=== PATIENT | male | born 1970 ===

== ENCOUNTER 2017-11-08 15:19 | Emergency (ER) | payer SELFPAY ==
[2017-11-08 15:30] VITALS: O2SAT 96
--- NOTE | 2017-11-08 15:48 | ED PDOC ---
Arrival/HPI <Chuck Michael - Last Filed: 11/09/17 04:23> - General Historian: Patient, EMS - History of Present Illness Time/Duration: 1-3 hours Symptom Onset: Sudden Symptom Course: Unchanged Quality: Unable to Describe Severity Level: 1 Activities at Onset: Rest Context: Street <Mervat Colbert - Last Filed: 11/09/17 12:35> - General Chief Complaint: Alcohol Ingestion Time Seen by Provider: 11/08/17 15:33 - History of Present Illness Narrative History of Present Illness (Text): 11/08/17 15:43 Pt is a 47 yr old male, new to this ER, BIBA for possible alcohol intoxication. Pt was found passed out on street in [place]. Pt states that he drank 6 beer since 8:30 this morning and had alcohol yesterday as well. Denies taking or consuming other substances, chest pain shortness of breath, fever, nausea, vomiting, diarrhea, tremors, incontinence or loss of balance. Pt is Alert and oriented to person, place and time. Denies suicidal or homicidal ideation. 11/08/17 15:52 (Mervat Colbert) Past Medical History - Provider Review Nursing Documentation Reviewed: Yes - Travel History Have you recently traveled outside [place] w/in the past 3 mons?: No - Psychiatric Hx Psychophysiologic Disorder: No Hx Substance Use: No <Mervat Colbert - Last Filed: 11/09/17 12:35> Family/Social History - Physician Review Nursing Documentation Reviewed: Yes Family/Social History: Unknown Family HX Smoking Status: Current Some Days Smoker Hx Alcohol Use: Yes Frequency of alcohol use: Daily Hx Substance Use: No <Mervat Colbert - Last Filed: 11/09/17 12:35> Allergies/Home Meds <Chuck Michael - Last Filed: 11/09/17 04:23> <Mervat Colbert - Last Filed: 11/09/17 12:35> Allergies/Adverse Reactions: Allergies No Known Allergies Allergy (Verified 11/08/17 15:27) Home Medications: Home Meds Medication Instructions Recorded Confirmed No Known Home Med 11/08/17 11/08/17 Review of Systems - Review of Systems Systems not reviewed;Unavailable: Intoxicated Constitutional: Normal Eyes: Normal ENT: Normal Respiratory: Normal Cardiovascular: Normal Gastrointestinal: Normal Genitourinary Male: Normal Musculoskeletal: Normal Skin: Normal Neurological: Normal Endocrine: Normal Hemo/Lymphatic: Normal Psychiatric: Normal. absent: Anxiety, Depression, Suicidal Ideation <Mervat Colbert - Last Filed: 11/09/17 12:35> Physical Exam - Physical Exam Physical Exam Limitations: Intoxication Vital Signs Reviewed: Yes Temperature: Afebrile Blood Pressure: Normal Pulse: Regular Respiratory Rate: Normal Appearance: Positive for: Well-Appearing, Non-Toxic, Comfortable Pain Distress: None Mental Status: Positive for: Alert and Oriented X 3 - Systems Exam Head: Present: Atraumatic, Normocephalic Conjunctiva: Present: Normal Neck: Present: Normal Range of Motion Respiratory/Chest: Present: Clear to Auscultation, Good Air Exchange. No: Respiratory Distress, Accessory Muscle Use Cardiovascular: Present: Regular Rate and Rhythm, Normal S1, S2. No: Murmurs Abdomen: Present: Normal Bowel Sounds. No: Tenderness, Distention, Peritoneal Signs Upper Extremity: Present: Normal Inspection. No: Cyanosis, Edema Lower Extremity: Present: Normal Inspection. No: Edema Neurological: Present: GCS=15, CN II-XII Intact, Speech Normal Skin: Present: Warm, Dry, Normal Color. No: Rashes Psychiatric: Present: Alert, Oriented x 3, Normal Insight, Normal Concentration , Intoxicated <Mervat Colbert - Last Filed: 11/09/17 12:35> Vital Signs Temp Pulse Resp BP Pulse Ox 11/09/17 04:29 75 18 154/80 H 96 11/08/17 22:38 83 16 115/70 96 11/08/17 19:15 98.0 F 72 16 112/68 100 11/08/17 15:28 98.2 F 82 16 127/80 96 Medical Decision Making <Chuck Michael - Last Filed: 11/09/17 04:23> Re-evaluation Time: 17:45 (Pt sitting upright; AOx3) - Lab Interpretations I have reviewed the lab results: Yes (EtOH level 395) - EKG Interpretation Interpreted by ED Physician: Yes (NSR with a rate of 66, Non-specific T-wave abnormailities) <Mervat Colbert - Last Filed: 11/09/17 12:35> ED Course and Treatment: 11/09/17 04:24 On reevaluation, patient is alert and awake. Patient is clinically sober and ambulating with a steady gait. Patient has no further complaints and is stable discharge. (Chuck Michael) 11/08/17 15:48 Impression Pt is a 47 yr old male, new to this ER, BIBA for alcohol intoxication. Plan Labs, UDS, ETOH level ECG, CXR, Cardiac ISO Assess and dispo Progress Note 11/08/17 20:40 Pt continues to sleep but is alert and oriented when asked; no signs of tremors , nausea, vomiting Will assess EtOH level over time CIWA score of [address] Michael at 02:00 (Mervat Colbert) - Lab Interpretations Lab Results: 11/08/17 16:45 11/08/17 16:45 Lab Results 11/08/17 16:45: Alcohol, Quantitative 395 H* 11/08/17 16:45: Sodium 149 H, Potassium 3.9, Chloride 107, Carbon Dioxide 24, Anion Gap 22 H, BUN 6 L, Creatinine 0.6 L, Est GFR ( Amer) > 60, Est GFR (Non-Af Amer) > 60, Random Glucose 102, Calcium 8.5, Total Bilirubin 0.1 L, AST 93 H, ALT 78 H, Alkaline Phosphatase 66, Lactate Dehydrogenase 453, Total Creatine Kinase 143, Troponin I < 0.01, Total Protein 7.4, Albumin 4.5, Globulin 3.0, Albumin/Globulin Ratio 1.5 11/08/17 16:45: WBC 4.1 L, RBC 3.87, Hgb 13.9 L, Hct 40.1 L, MCV 103.6, MCH 35.9 H, MCHC 34.7, RDW 12.9, Plt Count 227, MPV 9.4 11/08/17 16:30: Urine Opiates Screen Negative, Urine Methadone Screen Negative, Ur Barbiturates Screen Negative, Ur Phencyclidine Scrn Negative, Ur Amphetamines Screen Negative, U Benzodiazepines Scrn Negative, U Oth Cocaine Metabols Negative, U Cannabinoids Screen Negative 11/08/17 16:30: Urine Color Straw, Urine Appearance Clear, Urine pH 6.0, Ur Specific [place] <= 1.005, Urine Protein Negative, Urine Glucose (UA) Negative, Urine Ketones Negative, Urine Blood Negative, Urine Nitrate Negative, Urine Bilirubin Negative, Urine Urobilinogen 0.2, Ur Leukocyte Esterase Negative - RAD Interpretation Radiology Orders: 11/08/17 15:51 CHEST PORTABLE [RAD] Stat Disposition/Present on Arrival - Present on Arrival Any Indicators Present on Arrival: No - Disposition Disposition Time: 04:16 Patient Plan: Discharge <Chuck Michael - Last Filed: 11/09/17 04:23> - Present on Arrival Any Indicators Present on Arrival: Yes History of DVT/PE: No History of Uncontrolled Diabetes: No Urinary Catheter: No History of Decub. Ulcer: No History Surgical Site Infection Following: None - Disposition Have Diagnosis and Disposition been Completed?: Yes <Mervat Colbert - Last Filed: 11/09/17 12:35> - Disposition Diagnosis: Acute alcohol intoxication Disposition: HOME/ ROUTINE Condition: GOOD Discharge Instructions (ExitCare): Alcohol Abuse and Alcoholism (DC) Referrals: PCP,NO [Primary Care Provider] - Follow up with primary Forms: [facility] (Urdu), WORK NOTE
[2017-11-08 16:58] LABS: URINE BILIRUBIN NEGATIVE (NEGATIVE); URINE BLOOD NEGATIVE (NEGATIVE); URINE GLUCOSE (UA) NEGATIVE (NEGATIVE); URINE LEUKOCYTE ESTERASE NEGATIVE Leu/uL (NEGATIVE); URINE PROTEIN NEGATIVE mg/dL (<30 mg/dL); URINE UROBILINOGEN 0.2 E.U./dL (<1 E.U./dL)
[2017-11-08 16:59] LABS: URINE APPEARANCE CLEAR (CLEAR); URINE COLOR STRAW (YELLOW)
--- NOTE | 2017-11-08 17:07 | RAD ---
HISTORY: ETOH Intox COMPARISON: AllNo prior. FINDINGS: LUNGS: No active pulmonary disease. PLEURA: No significant pleural effusion identified, no pneumothorax apparent. CARDIOVASCULAR: No radiographic findings to suggest acute or significant cardiovascular disease. OSSEOUS STRUCTURES: No significant abnormalities. VISUALIZED UPPER ABDOMEN: Normal. OTHER FINDINGS: None. IMPRESSION: No active disease.
[2017-11-08 17:18] LABS: HEMOGLOBIN 13.9 g/dL (14.0-18.0); MEAN CELL VOLUME 103.6 fl (80.0-105.0); MEAN CORPUSCULAR HEMOGLOBIN 35.9 pg (25.0-35.0); MEAN CORPUSCULAR HGB CONC 34.7 g/dl (31.0-37.0); MEAN PLATELET VOLUME 9.4 fl (7.0-11.0); RBC 3.87 10^6/uL (3.5-6.1); RED CELL DISTRIBUTION WIDTH 12.9 % (11.5-14.5); WHITE BLOOD COUNT 4.1 10^3/ul (4.5-11.0)
[2017-11-08 17:22] LABS: BARBITURATES, UR NEGATIVE (NEGATIVE); BENZODIAZEPINES, UR NEGATIVE (NEGATIVE); OPIATES, UR NEGATIVE (NEGATIVE); PHENCYCLIDINE, UR NEGATIVE (NEGATIVE)
[2017-11-08 17:23] LABS: ALB/GLOB RATIO 1.5 (1.1-1.8); ALBUMIN 4.5 g/dL (3.0-4.8); ALT/SGPT 78 U/L (7-56); AST/SGOT 93 U/L (17-59); BLOOD UREA NITROGEN 6 mg/dL (7-21); CALCIUM 8.5 mg/dL (8.4-10.5); GFR AFRICAN-AMERICAN > 60; GFR NON-AFRICAN AMERICAN > 60
[2017-11-08 17:35] LABS: TROPONIN I < 0.01 ng/mL
[2017-11-08 22:41] VITALS: TEMP 98
[2017-11-09 04:30] VITALS: BP 154/80; PULSE 75; RESP 18
--- NOTE | 2017-11-09 14:30 | CARD ---
APPROVED REPORT EKG Measurement Heart [id number] <Conclusion> Normal sinus rhythm Nonspecific T wave abnormality Abnormal ECG
== END 2017-11-09 04:29 | disposition home or self-care (01) ==
LOC: EDSEX → ED 15:19
DX: F10.129 Alcohol abuse with intoxication, unspecified (principal); F17.200 Nicotine dependence, unspecified, uncomplicated
CPT/HCPCS: 71045; 80053; 81003; 82550; 83615; 84484; 85027; 93005; 99284; G0480